=== PATIENT | male | born 1980 | race Caucasian/White ===

== ENCOUNTER → 2020-12-15 | Outpatient (CLI) | payer BC ==
[~2020-12-15] MED LIST: COVID-19 VACCINE (PFIZER)/PF 30 MCG/0.3 ML VIAL IM ONE; EPINEPHRINE INJ/PF 1 MG/1 ML AMPULE IM PRN
== END ==
LOC: EMPHEALTH 13:49
PROVIDERS: ATTEND Internal Medicine
DX: Z23 Encounter for immunization (principal)
CPT/HCPCS: 91300